=== PATIENT | male | born 1990 | race African-American/Black ===

== ENCOUNTER 2021-01-15 06:08 | Emergency (ER) | payer OTHER ==
--- NOTE | 2021-01-15 06:24 | EDM.PDOC ---
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 NO laceration, no loc. Happened about a 1/2 hour prior arrival. No vision changes, not near the eye. otherwise healthy, drove self here. Takes occasional ibupofren, no other blood thinners Onset: Today, Sudden Duration: Minutes: Location: Reports: Head Left eye Pain Score (Numeric/FACES): 5 - Related Data Allergies Allergy/AdvReac Type Severity Reaction Status Date / Time No Known Allergies Allergy Verified 01/15/21 06:31 Home Meds: Home Meds . [No Known Home Meds] 01/15/21 [History] Social & Family History - Recreational Drug Use Recreational Drug Use: No Drug Use in Last 12 Months: No ED ROS GENERAL - Review of Systems Review Of Systems: See Below Constitutional: Reports: No Symptoms HEENT: Reports: No Symptoms Respiratory: Reports: No Symptoms Cardiovascular: Reports: No Symptoms Endocrine: Reports: No Symptoms GI/Abdominal: Reports: No Symptoms : Reports: No Symptoms Musculoskeletal: Reports: No Symptoms Skin: Reports: No Symptoms Neurological: Reports: Headache Psychiatric: Reports: No Symptoms Hematologic/Lymphatic: Reports: No Symptoms ED EXAM, HEAD INJURY - Physical Exam Exam: See Below Exam Limited By: No Limitations General Appearance: Alert, WD/WN, No Apparent Distress Head: Scalp Hematoma (left frontal area) Nexus Criteria: Posterior, Midline Cervical Tenderness Eyes: Bilateral Eye: EOMI, PERRL Ears: Normal External Exam, Normal Canal, Normal TMs Nose: Normal Inspection, Normal Mucousa, No Blood Throat/Mouth: Normal Inspection, Normal Lips, Normal Teeth, Normal Voice Neck: Non-Tender, Full Range of Motion, Normal Alignment Respiratory: No Respiratory Distress, Lungs Clear, Chest Non-Tender Cardiovascular: Normal Peripheral Pulses, Regular Rate, Rhythm, No Murmur GI/Abdominal Exam: Normal Bowel Sounds, Soft, No Abnormal Bruit Back Exam: Normal Inspection Extremities: Normal Inspection, Normal Range of Motion Neurologic: mail order sorter II-XII nml As Tested, No Motor/Sensory Deficits, Alert, Normal Mood/Affect, Oriented x 3. No: Abnormal Cerebellar Tests, Abnormal Gait, Aphasia - [place] Coma Score Best Eye Response ([place]): (4) Open Spontaneously Best Verbal Response ([place]): (5) Oriented Best Motor Response ([place]): (6) Obeys Commands Course - Vital Signs Last Recorded V/S: Last Vital Signs Temp 36.4 C 01/15/21 06:37 Pulse 86 01/15/21 06:37 Resp 20 01/15/21 06:37 BP 123/89 01/15/21 06:37 Pulse Ox 99 01/15/21 06:37 - Orders/Labs/Meds Orders: Active Orders 24 hr Category Date Time Status Head wo Cont [CT] Stat Exams 01/15/21 06:14 Taken Meds: Medications Discontinued Medications Generic Name Dose Route Start Last Admin Trade Name Freq PRN Reason Stop Dose Admin Ibuprofen 600 mg 01/15/21 06:14 01/15/21 07:03 Ibuprofen 600 Mg Tab PO 01/15/21 06:15 600 mg ONETIME ONE Administration - Radiology Interpretation Free Text/Narrative:: ct head without any acute intercranial findings. interpreted by radiology - Re-Assessments/Exams Free Text/Narrative Re-Assessment/Exam: 01/15/21 06:[address] head [address] with give motrin 600 mg pO. Departure - Departure Time of Disposition: 07:30 Disposition: Home, Self-Care 01 Condition: Good Clinical Impression: Head injury - Discharge Information *PRESCRIPTION DRUG MONITORING PROGRAM REVIEWED*: Not Applicable *COPY OF PRESCRIPTION DRUG MONITORING REPORT IN PATIENT CHERYL: Not Applicable Instructions: Head Injury, Adult Forms: ED Department Discharge Additional Instructions: You can use tylenol or motrin for your headache. limit strenuous activity today. Sepsis Event Note (ED) - Focused Exam Vital Signs: Vital Signs Temp Pulse Resp BP Pulse Ox 01/15/21 06:37 36.4 C 86 20 123/89 99 - My Orders Last 24 Hours: My Active Orders 01/15/21 06:14 Head wo Cont [CT] Stat - Assessment/Plan Last 24 Hours: My Active Orders 01/15/21 06:14 Head wo Cont [CT] Stat
[2021-01-15] MEDS: Ibuprofen 600 MG Tab PO ONE (07:03)
== END 2021-01-15 07:42 | disposition home or self-care (01) ==
LOC: LL.ED 06:08
DX: S00.03XA Contusion of scalp, initial encounter (principal); W22.8XXA Striking against or struck by other objects, initial encounter
CPT/HCPCS: 70450; 99283; 99283-25; A9270-GY

== ENCOUNTER 2021-01-31 00:18 | Emergency (ER) | payer BC, OTHER ==
[2021-01-31] MEDS ORDERED: Sodium Chloride 0.9% 10 ML Syringe FLUSH PRN (00:25)
[2021-01-31] MEDS: Iopamidol 612 MG/ML 100 ML Bottle IVPUSH ONE (00:30)
[2021-01-31] MEDS: Sodium Chloride 0.9% 1,000 ML IV SCH (00:51)
[2021-01-31] MEDS: Ketorolac 30 MG/ML SDV IVPUSH ONE (00:51)
[2021-01-31 01:00] LABS: ANION GAP 8.9 meq/L (7-15); CHLORIDE,CL 106 mmol/L (98-107); SODIUM,NA 140 mmol/L (136-145)
--- NOTE | 2021-01-31 01:36 | EDM.PDOC ---
ED HPI GENERAL MEDICAL PROBLEM - General Chief Complaint: Abdominal Pain Stated Complaint: Abd pain Time Seen by Provider: 01/31/21 00:25 Source of Information: Reports: Patient History Limitations: Reports: No Limitations - History of Present Illness INITIAL COMMENTS - FREE TEXT/NARRATIVE: Patient complains of abdominal pain that started yesterday. It is in the left lower abdomen and getting worse. Last bowel movement yesterday, normal urination. NO fevers or chills. No appetite today but ate a piece of pizza. No covid and no vaccine. pain was worse with bumps in the road. Took tylenol for it, did not help. - Related Data Allergies Allergy/AdvReac Type Severity Reaction Status Date / Time No Known Allergies Allergy Verified 01/15/21 06:31 Home Meds: Home Meds . [No Known Home Meds] 01/15/21 [History] Past Medical History - Past Health History Medical/Surgical History: Denies Medical/Surgical History Social & Family History - Tobacco Use Tobacco Use Within Last Twelve Months: Vaping - Caffeine Use Caffeine Use: Reports: None - Alcohol Use Alcohol Use History: Yes Alcohol Use in Last Twelve Months: Yes Alcohol Use Frequency: Socially - Recreational Drug Use Recreational Drug Use: No ED ROS GENERAL - Review of Systems Review Of Systems: See Below Constitutional: Reports: Fatigue. Denies: Fever, Chills HEENT: Reports: No Symptoms. Denies: Eye Pain, Glasses, Hearing Loss, Nosebleed, Vision Change Respiratory: Reports: No Symptoms. Denies: Shortness of Breath, Wheezing Cardiovascular: Reports: No Symptoms. Denies: Chest Pain, Blood Pressure Problem, Dyspnea on Exertion GI/Abdominal: Reports: Abdominal Pain, Decreased Appetite. Denies: Diarrhea, Nausea, Vomiting : Reports: No Symptoms. Denies: Discharge, Dysuria, Frequency Musculoskeletal: Reports: No Symptoms. Denies: Neck Pain Skin: Reports: No Symptoms ED EXAM, GI/ABD - Physical Exam Exam: See Below Exam Limited By: No Limitations General Appearance: Alert, WD/WN, No Apparent Distress Eyes: Bilateral: Normal Appearance, EOMI Ears: Normal External Exam, Normal Canal, Normal TMs Nose: Normal Inspection, Normal Mucosa, No Blood Throat/Mouth: Normal Inspection, Normal Lips, Normal Teeth, Normal Voice Head: Atraumatic, Normocephalic Neck: Normal Inspection, Supple, Non-Tender, Full Range of Motion Respiratory/Chest: No Respiratory Distress, Lungs Clear, Normal Breath Sounds, No Accessory Muscle Use, Chest Non-Tender Cardiovascular: Normal Peripheral Pulses, Regular Rate, Rhythm, No Murmur GI/Abdominal Exam: Soft, No Organomegaly, No Mass, Tender (RLQ, no rebound). No: Rigid, Rebound (Male) Exam: No Hernia Back Exam: Normal Inspection, Full Range of Motion. No: CVA Tenderness (L), CVA Tenderness (R) Extremities: Normal Inspection, Normal Range of Motion, Normal Capillary Refill Neurological: Alert, Oriented, CN II-XII Intact, Normal Cognition, No Motor/Sensory Deficits Psychiatric: Normal Affect, Normal Mood Course - Vital Signs Last Recorded V/S: Last Vital Signs Temp 36.9 C 01/31/21 00:20 Pulse 89 01/31/21 00:20 Resp 15 01/31/21 00:20 BP 123/83 01/31/21 00:20 Pulse Ox 100 01/31/21 00:20 - Orders/Labs/Meds Orders: Active Orders 24 hr Category Date Time Status Peripheral IV Care [RC] . DIRECTED Care 01/31/21 00:25 Active Abdomen Pelvis w Cont [CT] Stat Exams 01/31/21 00:25 Ordered UA RFX ROYER AND CULT IF INDIC [URIN] Stat Lab 01/31/21 00:25 Ordered Sodium Chloride 0.9% [Normal Saline] 1,000 ml Med 01/31/21 00:30 Active IV ASDIRECTED Sodium Chloride 0.9% [Saline Flush] Med 01/31/21 00:25 Active 10 ml FLUSH ASDIRECTED PRN Peripheral IV Insertion Adult [OM.PC] Routine Oth 01/31/21 00:25 Ordered Medication Orders Sodium Chloride (Normal Saline) 1,000 mls @ 75 mls/hr IV ASDIRECTED ANTHONY Last Admin: 01/31/21 00:51 Dose: 75 mls/hr Documented by: CHARIS Sodium Chloride (Sodium Chloride 0.9% 10 Ml Syringe) 10 ml FLUSH ASDIRECTED PRN PRN Reason: Keep Vein Open Labs: Laboratory Tests 01/31/21 01/31/21 01/31/21 Range/Units 00:35 00:35 00:35 WBC 5.5 (4.0-10.2) K/uL RBC 4.90 (4.33-5.41) M/uL Hgb 14.4 (13.1-16.8) g/dL Hct 40.0 (39.0-49.0) % MCV 81.6 L (84.0-98.0) fL MCH 29.4 (28.2-33.3) pg MCHC 36.0 (31.7-36.0) g/dL RDW 12.3 (11.2-14.1) % Plt Count 208 (150-350) K/uL Neut % (Auto) 45.4 (45.0-80.0) % Lymph % (Auto) 47.5 (10.0-50.0) % [place] % (Auto) 5.0 (2.0-14.0) % Eos % (Auto) 1.7 (0.0-5.0) % Baso % (Auto) 0.4 (0.0-2.0) % Neut # (Auto) 2.48 (1.40-7.00) K/uL Lymph # (Auto) 2.59 (0.50-3.50) K/uL [place] # (Auto) 0.27 (0.00-1.00) K/uL Eos # (Auto) 0.09 (0.00-0.50) K/uL Baso # (Auto) 0.02 (0.00-0.20) K/uL Sodium 140 (136-145) mmol/L Potassium 3.8 (3.5-5.1) mmol/L Chloride 106 (98-107) mmol/L Carbon Dioxide 25.1 (21.0-32.0) mmol/L Anion Gap 8.9 (7-15) meq/L BUN 14 (7-18) mg/dL Creatinine 1.29 H (0.51-1.17) mg/dL Est Cr Clr Drug Dosing 93.57 mL/min Estimated GFR (MDRD) > 60 mL/min Glucose 150 H (70-99) mg/dL Lactic Acid (0.4-2.0) mmol/L Calcium 8.5 (8.5-10.1) mg/dL Total Bilirubin 1.1 H (0.2-1.0) mg/dL AST 23 (15-37) U/L ALT 23 (12-78) U/L Alkaline Phosphatase 81 (46-116) IU/L C-Reactive Protein < 0.2 (<=0.9) mg/dL Total Protein 7.3 (6.4-8.2) g/dL Albumin 4.1 (3.4-5.0) g/dL Lipase 40 L (73-393) U/L SARS-CoV-2 RNA (DIONNE) Positive H (NEGATIVE) 01/31/21 Range/Units 00:35 WBC (4.0-10.2) K/uL RBC (4.33-5.41) M/uL Hgb (13.1-16.8) g/dL Hct (39.0-49.0) % MCV (84.0-98.0) fL MCH (28.2-33.3) pg MCHC (31.7-36.0) g/dL RDW (11.2-14.1) % Plt Count (150-350) K/uL Neut % (Auto) (45.0-80.0) % Lymph % (Auto) (10.0-50.0) % [place] % (Auto) (2.0-14.0) % Eos % (Auto) (0.0-5.0) % Baso % (Auto) (0.0-2.0) % Neut # (Auto) (1.40-7.00) K/uL Lymph # (Auto) (0.50-3.50) K/uL [place] # (Auto) (0.00-1.00) K/uL Eos # (Auto) (0.00-0.50) K/uL Baso # (Auto) (0.00-0.20) K/uL Sodium (136-145) mmol/L Potassium (3.5-5.1) mmol/L Chloride (98-107) mmol/L Carbon Dioxide (21.0-32.0) mmol/L Anion Gap (7-15) meq/L BUN (7-18) mg/dL Creatinine (0.51-1.17) mg/dL Est Cr Clr Drug Dosing mL/min Estimated GFR (MDRD) mL/min Glucose (70-99) mg/dL Lactic Acid 1.1 (0.4-2.0) mmol/L Calcium (8.5-10.1) mg/dL Total Bilirubin (0.2-1.0) mg/dL AST (15-37) U/L ALT (12-78) U/L Alkaline Phosphatase (46-116) IU/L C-Reactive Protein (<=0.9) mg/dL Total Protein (6.4-8.2) g/dL Albumin (3.4-5.0) g/dL Lipase (73-393) U/L SARS-CoV-2 RNA (DIONNE) (NEGATIVE) Meds: Medications Generic Name Dose Route Start Last Admin Trade Name Freq PRN Reason Stop Dose Admin Sodium Chloride 1,000 mls @ 75 mls/hr 01/31/21 00:30 01/31/21 00:51 Normal Saline IV 75 mls/hr ASDIRECTED ANTHONY Administration Sodium Chloride 10 ml 01/31/21 00:25 Sodium Chloride 0.9% 10 Ml Syringe FLUSH ASDIRECTED PRN Keep Vein Open Discontinued Medications Generic Name Dose Route Start Last Admin Trade Name Freq PRN Reason Stop Dose Admin Iopamidol 100 ml 01/31/21 00:28 01/31/21 00:30 Iopamidol 612 Mg/Ml 100 Ml Bottle IVPUSH 01/31/21 00:29 100 ml ONETIME ONE Administration Ketorolac Tromethamine 30 mg 01/31/21 00:25 01/31/21 00:51 Ketorolac 30 Mg/Ml Sdv IVPUSH 01/31/21 00:26 30 mg ONETIME ONE Administration - Radiology Interpretation Free Text/Narrative:: CT interpreted by radiology 1. normal appendix 2. no ascites 3. mild hepatomegaly 4. calcifications in stoney head of the pancreas non specific. - Re-Assessments/Exams Free Text/Narrative Re-Assessment/Exam: 01/31/21 will give fluids and toradol. Check for covid 19, labs and ct abdomen and pelvis with concern for appendicitis Has covid 19. given 2 weeks off work. return as needed Departure - Departure Time of Disposition: 01:42 Disposition: Home, Self-Care 01 Clinical Impression: Abdominal pain, COVID-19 - Discharge Information *PRESCRIPTION DRUG MONITORING PROGRAM REVIEWED*: Not Applicable *COPY OF PRESCRIPTION DRUG MONITORING REPORT IN PATIENT CHERYL: Not Applicable Instructions: COVID-19 Frequently Asked Questions, What You Should Know About COVID-19 to Protect Yourself and Others - CDC, 10 Things You Can Do to Manage Your COVID-19 Symptoms at Home - CDC, Abdominal Pain, Adult, Prevent the Spread of COVID-19 if You Are Sick - [facility] Referrals: PCP,None [Primary Care Provider] - Forms: ED Department Discharge, ED Return to Work/School Form Additional Instructions: You have Covid 19. You need to quarantine for 14 days, stay home. use the pain medication as needed but it may cause constipation. Notify all close contacts and have them get tested in 3-5 days. If you develop shortness of breath and feel you need to be seen return to the ED. Wear your mask at all times. Sepsis Event Note (ED) - Evaluation Sepsis Screening Result: No Definite Risk - Focused Exam Vital Signs: Vital Signs Temp Pulse Resp BP Pulse Ox 01/31/21 00:20 36.9 C 89 15 123/83 100 - My Orders Last 24 Hours: My Active Orders 01/31/21 00:25 Peripheral IV Care [RC] . DIRECTED Abdomen Pelvis w Cont [CT] Stat UA RFX ROYER AND CULT IF INDIC [URIN] Stat Sodium Chloride 0.9% [Saline Flush] 10 ml FLUSH ASDIRECTED PRN Peripheral IV Insertion Adult [OM.PC] Routine 01/31/21 00:30 Sodium Chloride 0.9% [Normal Saline] 1,000 ml IV ASDIRECTED - Assessment/Plan Last 24 Hours: My Active Orders 01/31/21 00:25 Peripheral IV Care [RC] . DIRECTED Abdomen Pelvis w Cont [CT] Stat UA RFX ROYER AND CULT IF INDIC [URIN] Stat Sodium Chloride 0.9% [Saline Flush] 10 ml FLUSH ASDIRECTED PRN Peripheral IV Insertion Adult [OM.PC] Routine 01/31/21 00:30 Sodium Chloride 0.9% [Normal Saline] 1,000 ml IV ASDIRECTED
== END 2021-01-31 02:00 | disposition home or self-care (01) ==
LOC: LL.ED 00:18
DX: R10.32 Left lower quadrant pain (principal); U07.1 COVID-19
CPT/HCPCS: 36415; 74177; 80053; 83605; 83690; 85025; 86140; 96374; 99284; 99284-25; J1885; J7030; Q9967; U0002